=== PATIENT | female | born 1940 | race Caucasian/White ===

== ENCOUNTER 2020-09-25 11:13 | Inpatient (IN) | payer OTHER, SELFPAY ==
[~2020-09-25] VITALS: Ht 167.6 cm; Wt 67.6 kg
[2020-09-25 11:15] VITALS: BP_SYST 107
--- NOTE | 2020-09-25 11:15 | NUR ---
PT TO BED 8 FOR EVALUATION. PT GOWNED AND ATTACHED TO MONITOR.
[2020-09-25 11:52] LABS: BASOPHILS # (AUTO) 0.1 K/uL (0.0-0.2); BASOPHILS % (AUTO) 0.4 % (0.0-2.0); EOSINOPHILS % (AUTO) 0.1 % (0.0-4.0); HEMATOCRIT 38.3 % (36-48); HEMOGLOBIN 12.2 g/dL (12.0-16.0); LYMPHOCYTES # (AUTO) 1.1 K/uL (1.0-5.5); LYMPHOCYTES % (AUTO) 8.2 % (20.5-51.5); MEAN CORPUSCULAR HEMOGLOBIN 26 pg (27-31); MEAN CORPUSCULAR HGB CONC 32 % (32-36); MEAN CORPUSCULAR VOLUME 80 fL (79.0-98.0); MONOCYTES # (AUTO) 0.8 K/uL (0.0-1.0); MONOCYTES % (AUTO) 6.1 % (1.7-9.3); NEUTROPHILS # (AUTO) 11.8 K/uL (1.8-7.7); NEUTROPHILS % (AUTO) 85.2 % (40.0-70.0); PLATELET COUNT (AUTO) 205 K/uL (130-430); RED BLOOD CELL COUNT(AUTO) 4.78 MIL/uL (4.2-6.2); RED CELL DISTRIBUTION WIDTH 18.6 % (9.0-15.0); WHITE BLOOD COUNT (AUTO) 13.9 K/uL (4.8-10.8)
--- NOTE | 2020-09-25 11:58 | NUR ---
PT ARRIVES FROM HOME W/ INCREASING SOB W/ EXCERSION. PT DENIES ANY CP. IS ABLE TO SPEAK INCOMPETE SENTENCES
--- NOTE | 2020-09-25 11:58 | NUR ---
RAPID COVONDINA COLLECTED AND SENT TO LAB
[2020-09-25] MEDS ORDERED: ASPIRIN 325 MG TABLET PO ONE (12:00)
--- NOTE | 2020-09-25 12:00 | NUR ---
ER at bedside examining patient.
[2020-09-25 12:05] LABS: ANION GAP 19 (5-15); CALCIUM 9.1 mg/dL (8.4-11.0); CHLORIDE 100 mmol/L (98-107); CREATININE 1.41 mg/dL (0.55-1.30); GLUCOSE 146 mg/dL (70-99); POTASSIUM 4.6 mmol/L (3.5-5.1); SODIUM SERUM 136 mmol/L (136-145); UREA NITROGEN, BLOOD 34 mg/dL (8-21)
[2020-09-25 12:14] LABS: ALANINE AMINOTRANSFERASE 440 U/L (12-78); ALBUMIN 3.4 g/dL (3.4-4.8); ASPARTATE AMINOTRANSFERASE 523 U/L (10-37)
[2020-09-25] MEDS ORDERED: HYDR25TA4 PO (12:45)
[2020-09-25] MEDS ORDERED: ATEN-41 PO (12:45)
--- NOTE | 2020-09-25 12:45 | NUR ---
Medication reconciliation completed with information provided by PT. Any prior medication reconciliation on file was reviewed and corrected.
--- NOTE | 2020-09-25 12:49 | NUR ---
DR. HAMLIN AT THE BEDSIDE
--- NOTE | 2020-09-25 12:55 | NUR ---
CALLED FOR A TELE BED
[2020-09-25] MEDS ORDERED: ASPIRIN 325 MG TABLET (ECOTRIN) PO ONE (13:00)
[2020-09-25] MEDS ORDERED: METOPROLOL TARTRATE 25 MG TABLET PO ONE (13:00)
[2020-09-25] MEDS ORDERED: *HEPARIN PER PHARMACY XX PRN (13:00)
--- NOTE | 2020-09-25 13:05 | NUR ---
US at bedside for 2D echo.
--- NOTE | 2020-09-25 13:34 | NUR ---
Patient will be admitted to care of Dr. Lipscomb. Admitted to tele unit. Will go to room 123-b. Belongings list completed. Complete and up to date summary report printed. SBAR report to be given at bedside with opportunity for questions.
--- NOTE | 2020-09-25 13:45 | NUR ---
ADMISSION NOTE Received patient from ER via mary kate, received report from Manda HYLTON. Patient admitted with diagnosis of CHF, Acute WI. Patient oriented to hospital routine, call light, toileting and safety-patient verbalized understanding.
[2020-09-25 13:49] LABS: CHOLESTEROL 159 mg/dL (<200); HDL CHOLESTEROL 34 mg/dL (>55); LDL CHOLESTEROL 113 mg/dL (<100); TRIGLYCERIDES 71 mg/dL (30-150)
[2020-09-25 14:31] VITALS: BP_SYST 97
--- NOTE | 2020-09-25 14:33 | NUR ---
Paged Dr. Estevez for Lisseth RN, regarding order clarification.
[2020-09-25 15:00] LABS: INR 1.3 (0.8-1.2); PROTHROMBIN TIME 14.1 SECS (9.5-12.5)
--- NOTE | 2020-09-25 15:13 | NUR ---
CONSULTATION PAGE PAGED DR FLEX DOUGLAS FOR CONSULT. SW PHYSICIAN WHO WILL SEE PT TODAY
[2020-09-25] MEDS ORDERED: FUROSEMIDE 20 MG/2 ML VIAL IVP ONE (15:30)
[2020-09-25] MEDS ORDERED: HEPARIN SODIUM,PORCINE 3000 UNITS/0.6 ML BOLUS IVP PRN (15:30)
[2020-09-25] MEDS ORDERED: HEPARIN SODIUM,PORCINE 5,000 UNITS/ML VIAL IV ONE (15:30)
[2020-09-25] MEDS ORDERED: HEPARIN SODIUM,PORCINE 2000 UNITS/0.4 ML BOLUS IVP PRN (15:30)
[2020-09-25] MEDS: HEPARIN 25,000 UNITS in 250 ML PREMIX IV PRN ×2 (15:33→22:26)
[2020-09-25 16:40] VITALS: BP_SYST 108
--- NOTE | 2020-09-25 16:45 | NUR ---
[facility] TO REACH OUT TO FAMILY FOR HOSPICE [facility] APPT Addendum: 09/25/20 at 1658 by Jovita Sprague RN DISREGARD MY PREVIOUS NOTE REGARDING HOSPICE. NOT MEANT FOR THIS PT
--- NOTE | 2020-09-25 18:30 | NUR ---
Closing note: Patient is stable, no sign of distress. On Heparin IV drip at 900 units/hr. Tolerates 2 gram sodium diet well.
--- NOTE | 2020-09-25 19:30 | NUR ---
Opening note Received pt from out going nurse. Pt lying in bed awake and alertX4. On RA, breathing non labored. No distress noted. IV on right AC patent and intact, no infiltration or complications. Provided linen change. Bed to lowest position and locked/alarmed. Call light within reach and needs attended. On safety/fall/aspiration precaution.
[2020-09-25 20:19] VITALS: BP_SYST 95
--- NOTE | 2020-09-25 20:41 | NUR ---
dr. gerry jenkins saw pt at bedside. spoke to md and clarify lopressor cause pt bp is 95-95, hr-72, md adjust medication.
[2020-09-25] MEDS ORDERED: METOPROLOL TARTRATE 25 MG TABLET PO SCH (21:00)
[2020-09-26 00:50] VITALS: BP_SYST 95
--- NOTE | 2020-09-26 06:28 | NUR ---
Closing note Pt resting in bed sleeping, easily arouse by name and tactile stimuli. Pt alertX4. On RA, breathing non labored. No distress noted. IV on right AC patent and intact, no infiltration or complications. Provided linen change. All needs attended to. Bed to lowest position and locked/alarmed. Call light within reach and needs attended. On safety/fall/aspiration precaution. Re-educate on safety and re-orient room. Signed: 09/26/20 at 06 by Martina Zhou LVN <Co-Signature Required> Co-Signed: 09/26/20 at 630 by Tay Armenta RN
[2020-09-26 06:32] LABS: BASOPHILS % (AUTO) 0.2 % (0.0-2.0); EOSINOPHILS % (AUTO) 0.2 % (0.0-4.0); HEMATOCRIT 35.3 % (36-48); HEMOGLOBIN 11.3 g/dL (12.0-16.0); LYMPHOCYTES # (AUTO) 1.9 K/uL (1.0-5.5); MEAN CORPUSCULAR HEMOGLOBIN 25 pg (27-31); MEAN CORPUSCULAR HGB CONC 32 % (32-36); MEAN CORPUSCULAR VOLUME 79 fL (79.0-98.0); MONOCYTES # (AUTO) 0.9 K/uL (0.0-1.0); NEUTROPHILS # (AUTO) 9.6 K/uL (1.8-7.7); NEUTROPHILS % (AUTO) 77.6 % (40.0-70.0); PLATELET COUNT (AUTO) 182 K/uL (130-430); RED BLOOD CELL COUNT(AUTO) 4.46 MIL/uL (4.2-6.2); WHITE BLOOD COUNT (AUTO) 12.4 K/uL (4.8-10.8)
[2020-09-26 06:39] LABS: ANION GAP 17 (5-15); CALCIUM 8.5 mg/dL (8.4-11.0); CHLORIDE 100 mmol/L (98-107); CREATININE 1.07 mg/dL (0.55-1.30); GLUCOSE 111 mg/dL (70-99); POTASSIUM 3.7 mmol/L (3.5-5.1); SODIUM SERUM 136 mmol/L (136-145); TOTAL BILIRUBIN 1.4 mg/dL (0.0-1.0); UREA NITROGEN, BLOOD 46 mg/dL (8-21)
--- NOTE | 2020-09-26 06:46 | NUR ---
Nutrition Update Anish Scale 15 noted. Pt admitted for CHF, Acute Myocardial Infarction Diet: 2gm Na BMI: 241.6 (?) kg/m2 RD to follow per nutrition care standards.
[2020-09-26 07:10] LABS: ALANINE AMINOTRANSFERASE 1090 U/L (12-78); ASPARTATE AMINOTRANSFERASE 1257 U/L (10-37)
[2020-09-26] MEDS: HEPARIN 25,000 UNITS in 250 ML PREMIX IV PRN (07:18)
--- NOTE | 2020-09-26 07:29 | NUR ---
SHIFT ENDORSEMENT Report from WARNER Cross (night). Troponin result reported to Yang Patino and order received to keep PTT in 50 to 70 in 1 hr. Communicated to pharmacy already.
[2020-09-26] MEDS ORDERED: COMMUNICATION ORDER XX ONE (07:30)
--- NOTE | 2020-09-26 07:32 | NUR ---
OPENING NOTE Patient resting in the bed. No acute distress. AAO x 4. Denied of pain. Skin warm and dry to touch. IV intact to RAC, no redness, no swelling, no drainage. On Heparin drip at 1100 unit/hr, infusing well. Discussed the safety issue, use call light when needs help, and plan of care, verbally understanding. Safety measure maintained. Call light within reached. Bed in low position, side rails up, bed alarm on. Will continue to monitor.
[2020-09-26 07:50] VITALS: BP_SYST 121
--- NOTE | 2020-09-26 07:59 | NUR ---
HEPARIN Received the call from pharmacist Oumar regarding PTT and Heparin. Per Oumar to maintain patient PTT in 50 to 70 per Yang Haney in 1 hr. Heparin 3000 unit Heparin bolus one time ordered and repeat PTT in 2 hr after bolus administrated.
[2020-09-26] MEDS ORDERED: HEPARIN SODIUM,PORCINE 5,000 UNITS/ML VIAL SUBCUT ONE (08:00)
[2020-09-26] MEDS: METOPROLOL TARTRATE 25 MG TABLET PO SCH ×2 (08:47→20:49)
[2020-09-26] MEDS: ASPIRIN 325 MG TABLET (ECOTRIN) PO SCH (08:48)
--- NOTE | 2020-09-26 08:49 | NUR ---
EDUCATION ON HEPARIN Educated to patient regarding the medication of Heparin. the indication and possible side effect which including risk of bleeding and skin bruising. If bleeding happened, needs to report, verbally understanding. Safety measure maintained. Call light within reached. Bed locked in low position, side rails up, bed alarm on. Continue to monitor.
--- NOTE | 2020-09-26 10:08 | NUR ---
FLEX DORADO Dr. seen and examined the patient at bedside. Explained the risk and benefit. and the procedure of angiogram scheduled tomorrow in [facility]. Patient verbally understanding. Dr. Saldana answered the question that the patient had. Reported to Dr. Saldana, Heparin drip adjusted to 1100 units/hr and 300 units bolus given. Will repeat PTT at [address] Saldana not care the Heparin protocol. The goal is keep PTT in 50 to 70. If PTT result come back in 50-70, no need to call him. If not call him. Dr. Saldana talked to lesly pSann via phone.
[2020-09-26] MEDS ORDERED: *LOVENOX 1MG/KG Q12H/PHARMACY XX ONE (11:30)
--- NOTE | 2020-09-26 11:32 | NUR ---
SEEN AND EXAMINED BY VINCENT MTZ WITH ORDER RECEIVED. NOTED AND CARRIED OUT.
[2020-09-26 12:00] VITALS: BP_SYST 126
--- NOTE | 2020-09-26 12:10 | NUR ---
PTT 97.7 Called and received call back from Yang Haney. Reported PTT 97.7. Dr. Estevez seen the patent and D/C Heparin drip, ordered Lovenox 70mg subcut BID. Dr Saldana stated "that is good and do not give any Heparin".
[2020-09-26] MEDS: ENOXAPARIN SODIUM 80 MG/0.8 ML SYRINGE SUBCUT SCH (12:21)
--- NOTE | 2020-09-26 12:22 | NUR ---
LOVENOX GIVEN Educated the medication of Lovenox, the indication and possible side effect, including the risk of bleeding, skin bruising, verbally understanding.
--- NOTE | 2020-09-26 12:38 | NUR ---
PT FOR TRANSFER TO [facility] TOMORROW FOR HEART CATH. FLOOR TO CALL [facility] TAPE CONTROLLED MACHINE STITCHER AFTER MIDNIGHT TONIGHT TO GET A ROOM NUMBER. PLEASE ARRANGE AMBULANCE WITH [facility] FOR EMPLOYEE WELLNESS/FITNESS COORDINATOR TIME TOMORROW MORNING AT 10AM USING AUTH [id number].
--- NOTE | 2020-09-26 15:05 | NUR ---
CONFIRMED WITH [employer] CM MS GEORGE CLAY RE: TRANSFER INFO TO [facility] TOMORROW FOR HEART CATH. I WAS INSTRUCTED TO CALL EARLY TOMORROW MORNING BY 0500 TO GET A BED. [facility] WAS THE AMBULANCE ASSIGNED TO COMMERCIAL LOAN UNDERWRITER PT AT 1000, SET UP TIME BY DIRECTOR OF SPEECH PATHOLOGY.
--- NOTE | 2020-09-26 15:08 | NUR ---
ROUND Patient resting in the bed. No acute distress. Family at bedside. Safety measure maintained. Call light within reached. Bed locked in low position, side rails up, bed alarm on. Continue to monitor.
[2020-09-26 16:50] VITALS: BP_SYST 110
--- NOTE | 2020-09-26 17:22 | NUR ---
ARRANGED ALS AMBULANCE TRANSPORT (CLINICAL PSYCHOLOGIST LICENSED) WITH [facility] GOING TO [facility], CAR SEAT UPHOLSTERER TIME IS 1000 FOR HEART CATH. SPOKE TO KERMIT.
--- NOTE | 2020-09-26 18:34 | NUR ---
CLOSING NOTE Patient resting in the bed. No acute distress. Denied of pain. Skin warm and dry to touch. SL intact to RAC, no redness, no swelling, patent. No s/s of bleeding. o skin bruising noted at this time. All needs met. and son at bedside. Per son will come tomorrow morning around 9 am and will go with patient to [facility] for procedure. The transfer package and CD of chest x-ray ready. Safety measure maintained. Call light within reached. Bed in low position, side rails up, bed alarm on. Will endorse to night nurse.
[2020-09-26 20:00] VITALS: BP_SYST 129
--- NOTE | 2020-09-26 23:58 | NUR ---
SPOKE WITH WESLY REGARDING LOVENOX ADMINISTRATION DUE TO ANGIOGRAM PROCEDURE TOMORROW AT [address] WESLY HENDRICKS TO ADMINISTER SCHEDULED 0000 LOVENOX.
[2020-09-27] VITALS: BP_SYST 107
[2020-09-27] MEDS: ENOXAPARIN SODIUM 80 MG/0.8 ML SYRINGE SUBCUT SCH (00:03)
--- NOTE | 2020-09-27 05:11 | NUR ---
[facility] Spoke to Lead Ruby On Rails Developer Tierra, she said to call them back at 0730 to confirm the bed. She made sure that they have a bed for the patient. The procedure is scheduled at 2 p.m and she wants the patient to be in their hospital at least 12 nn. WARNER Recinos is aware.
--- NOTE | 2020-09-27 07:43 | NUR ---
CLOSING NOTES: PATIENT IS IN STABLE CONDITION, ALERT AND ORIENTED. REPORT GIVEN TO DAYSHIFT NURSE.
--- NOTE | 2020-09-27 08:03 | NUR ---
PATIENT IS GOING TO [facility] RM 268[facility]. PT WILL BE ACCEPTED AT 12 NOON ONLY SINCE HEART CATH IS AT 1400. NUMBER TO GET REPORT IS [id number]. [facility] AM[facility]UL[facility] WAS INFORMED TO CHANGE HEALTH INFORMATION ADMINISTRATOR TIME TO 1115. SPOKE TO KATH.
--- NOTE | 2020-09-27 08:10 | NUR ---
Opening Note Patient resting in the bed. No acute distress. AAO x 4. Denied of pain. Skin warm and dry to touch. IV intact to RAC, no redness, no swelling, no drainage. . Discussed the safety issue, use call light when needs help, and plan of care, verbally understanding. Safety measure maintained. Call light within reached. Bed in low position, side rails up, bed alarm on. Discussed plan of care to transport to [facility], pt verbalized understanding. Will follow up with case management for transport.
[2020-09-27 08:27] VITALS: BP_SYST 114
--- NOTE | 2020-09-27 08:35 | NUR ---
CALLED [facility] TO CHANGE ALS AMBULANCE TRANSPORT BACK TO 1000. SPOKE WITH KATH.
[2020-09-27 08:41] VITALS: BP_SYST 114
--- NOTE | 2020-09-27 09:06 | NUR ---
RNS DOUGLAS AND JS HAVE BEEN INFORMED SEVERAL TIMES PT IS OFF MONITOR.
[2020-09-27] MEDS: ASPIRIN 325 MG TABLET (ECOTRIN) PO SCH (09:13)
[2020-09-27] MEDS: METOPROLOL TARTRATE 25 MG TABLET PO SCH (09:13)
--- NOTE | 2020-09-27 09:17 | NUR ---
Transfer Note Asked if it was okay to give morning medication (Aspirin and Metropolol) before transfer to [facility] for procedure, said it was okay with a little water. Medications given with a small amount of water.
--- NOTE | 2020-09-27 10:07 | NUR ---
ATTENDING MD DR HAMLIN WAS CALLED , RE: MEDICATION RECONCILLATION FOR TRANSFER TO [facility]. SPOKE TO ANTONELLA
--- NOTE | 2020-09-27 10:20 | NUR ---
PT TRANSFERRED Report given to WARNER Hwang. Transfer packet with Transfer Orders form given to EMT with report. Exit care provided. [facility] ID band removed, replaced with ID band with pt's name and . IV catheter remains in place, patent and intact. Patient belongings sent with priyank Correa at the time of transfer. Patient left floor via gurney escorted by EMT in no distress. [facility] not done, paged at 8:30 AM and 9:00 AM but no response yet. Patient sent with last 24 hours medications given.
== END 2020-09-27 10:25 | disposition short-term general hospital (02) | DRG 280 ==
LOC: SED 11:13 → STU 12:46
PROVIDERS: ADMIT Internal Medicine Hospice and Palliative Medicine; ATTEND Internal Medicine Hospice and Palliative Medicine
DX: I21.9 Acute myocardial infarction, unspecified (principal); I50.23 Acute on chronic systolic (congestive) heart failure; N17.0 Acute kidney failure with tubular necrosis; I42.9 Cardiomyopathy, unspecified; I25.10 Atherosclerotic heart disease of native coronary artery without angina pectoris; I27.20 Pulmonary hypertension, unspecified; Z20.822 Contact with and (suspected) exposure to COVID-19; I11.0 Hypertensive heart disease with heart failure; Z90.710 Acquired absence of both cervix and uterus; Z79.899 Other long term (current) drug therapy
CPT/HCPCS: 36415; 71045; 80053; 80061; 83880; 84484; 85025; 85610-TC; 85730-TC; 93005; 93306; 99291; G0378; J1644; J1650; J1940